=== PATIENT | female | born 1975 | race Caucasian/White ===

== ENCOUNTER 2017-10-16 05:10 | Inpatient (IN) | payer BC ==
[~2017-10-16] VITALS: Ht 162.6 cm; Wt 95.0 kg
[~2017-10-16 05:10] MED LIST: HYDR-3240 PO; IBUP-1222 PO; OXYC-302 PO
[2017-10-16] MEDS ORDERED: OXYTOCIN 30U/ 0.9% NaCL 500ML 500 ML ONE (05:15)
[2017-10-16] MEDS ORDERED: NEWBORN KIT ONE (05:15)
[2017-10-16] MEDS ORDERED: OXYTOCIN 30U/ 0.9% NaCL 500ML 500 ML IV PRN (05:17)
[2017-10-16] MEDS: D5%-LACTATED RINGERS 1,000 ML IV SCH ×2 (05:17→13:17)
[2017-10-16] MEDS ORDERED: MISOPROSTOL 200 MCG TABLET ONE (05:22)
[2017-10-16] MEDS ORDERED: LIDOCAINE 1%, 20ML ONE (05:22)
[2017-10-16] MEDS ORDERED: FENTANYL PF 100 MCG/2ML IV PRN (05:30)
[2017-10-16] MEDS ORDERED: CALCIUM CARBONATE 500 MG TAB.CHEW PO PRN ×2 (05:30→13:30)
[2017-10-16] MEDS ORDERED: FENTANYL PF 100 MCG/2ML IVPush PRN (05:30)
[2017-10-16] MEDS ORDERED: ONDANSETRON 2MG/ML, 2ML IVPush PRN (05:30)
[2017-10-16] MEDS ORDERED: LACTATED RINGERS 1,000 ML IVBOLUS PRN (05:30)
[2017-10-16 05:55] LABS: HEMATOCRIT 42.3 % (34.6-47.8); WHITE BLOOD COUNT 13.2 x10^3/uL (3.4-10)
[2017-10-16 06:00] VITALS: BP 138/76
[2017-10-16] MEDS: LACTATED RINGERS 1,000 ML IV SCH ×2 (06:04→12:27)
[2017-10-16] MEDS: OXYTOCIN 30U/ 0.9% NaCL 500ML 500 ML IV ONE ×2 (06:04→13:17)
[2017-10-16] MEDS: OXYTOCIN 30U/ 0.9% NaCL 500ML 500 ML IV SCH ×2 (13:21→23:21)
[2017-10-16] MEDS ORDERED: METOCLOPRAMIDE 5 MG/ML, 2ML IV PRN (13:30)
[2017-10-16] MEDS ORDERED: ONDANSETRON 2MG/ML, 2ML IV PRN (13:30)
[2017-10-16] MEDS ORDERED: OXYcodone/APAP 5/325MG TABLET PO PRN ×2 (13:30)
[2017-10-16] MEDS ORDERED: BISACODYL 10 MG SUPP PR PRN (13:30)
[2017-10-16] MEDS ORDERED: MISOPROSTOL 200 MCG TABLET PR PRN (13:30)
[2017-10-16] MEDS ORDERED: ACETAMINOPHEN 325 MG TABLET PO PRN ×3 (13:30)
[2017-10-16] MEDS ORDERED: GLYCERIN ADULT SUPP PR PRN (13:30)
[2017-10-16] MEDS ORDERED: METHYLERGONOVINE 0.2 MG/ML IM PRN (13:30)
[2017-10-16] MEDS ORDERED: IBUPROFEN 600 MG TABLET ONE (13:33)
[2017-10-16] MEDS: IBUPROFEN 600 MG TABLET PO PRN ×2 (14:04→22:41)
[2017-10-16 15:45] VITALS: BP 128/76
[2017-10-16 19:10] VITALS: BP 133/70
[2017-10-16] MEDS: DOCUSATE 100 MG CAPSULE PO PRN (19:27)
[2017-10-16 20:55] LABS: HEMATOCRIT 38.1 % (34.6-47.8); HEMOGLOBIN 12.8 g/dL (11.7-16.4); WHITE BLOOD COUNT 15.3 x10^3/uL (3.4-10)
[2017-10-17] VITALS: BP 123/63
[2017-10-17 07:30] VITALS: BP 123/61
[2017-10-17] MEDS: DOCUSATE 100 MG CAPSULE PO PRN ×2 (08:13→21:41)
[2017-10-17] MEDS: IBUPROFEN 600 MG TABLET PO PRN ×2 (08:13→21:41)
[2017-10-17] MEDS: PRENATAL VIT/IRON/FA 1 EACH TABLET PO SCH (08:14)
[2017-10-17] MEDS: OXYTOCIN 30U/ 0.9% NaCL 500ML 500 ML IV SCH ×2 (09:21→19:21)
[2017-10-17 12:30] VITALS: BP 118/71
[2017-10-17 19:55] VITALS: BP 124/57
[2017-10-18] MEDS: OXYTOCIN 30U/ 0.9% NaCL 500ML 500 ML IV SCH (05:21)
[2017-10-18 07:30] VITALS: BP 124/77
[2017-10-18] MEDS: PRENATAL VIT/IRON/FA 1 EACH TABLET PO SCH (07:38)
[2017-10-18] MEDS: DOCUSATE 100 MG CAPSULE PO PRN (07:38)
[2017-10-18] MEDS: IBUPROFEN 600 MG TABLET PO PRN (07:38)
== END 2017-10-18 15:55 | disposition home or self-care (01) | DRG 775 ==
LOC: LDIP 05:10 → 2NW 15:18
PROVIDERS: ADMIT Obstetrics & Gynecology Gynecology; ATTEND Obstetrics & Gynecology Gynecology
PROC: 10E0XZZ Delivery of Products of Conception, External Approach (ICD-10-PCS; principal; 2017-10-16)
PROC: 10907ZC Drainage of Amniotic Fluid, Therapeutic from Products of Conception, Via Natural or Artificial Opening (ICD-10-PCS; 2017-10-16)
PROC: 3E0P3VZ Introduction of Hormone into Female Reproductive, Percutaneous Approach (ICD-10-PCS; 2017-10-16)
DX: O35.1XX0 Maternal care for (suspected) chromosomal abnormality in fetus, not applicable or unspecified (principal); Q25.1 Coarctation of aorta; Z37.0 Single live birth; Q90.9 Down syndrome, unspecified; Z3A.39 39 weeks gestation of pregnancy; Z80.41 Family history of malignant neoplasm of ovary; Z82.3 Family history of stroke; Z82.49 Family history of ischemic heart disease and other diseases of the circulatory system; Z90.89 Acquired absence of other organs; Z83.42 Family history of familial hypercholesterolemia
CPT/HCPCS: 36415; 82803; 85025; 86850; 86900; J2590; J7120

== ENCOUNTER → 2018-09-26 | Outpatient (CLI) | payer BC | END | disposition home or self-care (01) | LOC: CFH 14:27 | PROVIDERS: ATTEND Obstetrics & Gynecology Gynecology | DX: Z12.31 Encounter for screening mammogram for malignant neoplasm of breast (principal) | CPT/HCPCS: 77067 ==